=== PATIENT | female | born 1955 | race Two or more races ===

== ENCOUNTER 2016-11-26 21:34 | Emergency (ER) | payer MEDICAID, MEDICARE ==
[~2016-11-26] VITALS: Ht 162.6 cm; Wt 79.4 kg
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
--- NOTE | 2016-11-26 22:28 | NUR ---
IFRAH JACOBS AT BEDSIDE FOR EVAL.
[2016-11-26] MEDS ORDERED: IBUPROFEN 400 MG TABLET ONE (22:39)
[2016-11-26] MEDS: IBUPROFEN 400 MG TABLET PO ONE (22:42)
[2016-11-26 22:44] VITALS: BP 139/89
--- NOTE | 2016-11-26 22:58 | NUR ---
XRAY AT BEDSIDE
== END 2016-11-26 23:36 | disposition home or self-care (01) ==
LOC: ER 21:37
DX: M25.561 Pain in right knee (principal); W19.XXXA Unspecified fall, initial encounter; Y93.89 Activity, other specified; Y92.89 Other specified places as the place of occurrence of the external cause; Y99.8 Other external cause status
CPT/HCPCS: 73564-TC; A4606; Z7610